=== PATIENT | female | born 1995 | race Caucasian/White ===

== ENCOUNTER 2021-12-18 10:18 | Emergency (ER) | payer OTHER ==
[~2021-12-18] VITALS: Ht 162.6 cm; Wt 63.5 kg
[2021-12-18] MEDS ORDERED: PRENATAL FORMU1 EACH PO (10:32)
[2021-12-18 11:06] LABS: BASOPHIL 0.2 % (0-2); EOSINOPHIL 2.6 % (0-5); HGB 12.5 g/dl (12.5-16.0); MCH 28.4 pg (25.0-31.0); MCHC 32.9 g/dL (32.0-36.0); MCV 86.4 fL (78.0-100.0); MONOCYTE 4.9 % (0-12); MPV 9.5 fL (6.0-9.5); NEUTROPHIL 67.5 % (41-80); NRBC 0; PLT 357 K/uL (150-400); RDW 12.6 % (11.5-14.0)
[2021-12-18 11:18] LABS: BUN/CREAT RATIO (CALC) 15.4 RATIO; CREATININE 0.52 mg/dL (0.51-0.95); POTASSIUM 3.5 mmol/L (3.5-5.1)
[2021-12-18 13:26] LABS: BILIRUBIN NEGATIVE (NEGATIVE); BLOOD 3+ Ery/uL (NEGATIVE); CLARITY CLOUDY (CLEAR); COLOR RED (YELLOW); GLUCOSE (U) NORMAL (NORMAL); LEUKOCYTES TRACE Leu/uL (NEGATIVE); NITRITE NEGATIVE (NEGATIVE); PROTEIN 1+ mg/dL (NEGATIVE); SPECIFIC GRAVITY 1.015 (1.001-1.030); UROBILINOGEN 0.2 mg/dL (0.2-1.0)
[2021-12-18 13:51] LABS: BACTERIA TRACE; URINARY RBC TNTC; URINARY WBC RARE
== END 2021-12-18 15:03 | disposition home or self-care (01) ==
LOC: FER 10:18 → EDBD 10:18 → FER 15:03
PROVIDERS: Emergency Medicine
DX: O99.891 Other specified diseases and conditions complicating pregnancy (principal); R31.9 Hematuria, unspecified; Z91.012 Allergy to eggs; Z88.8 Allergy status to other drugs, medicaments and biological substances; Z3A.19 19 weeks gestation of pregnancy
CPT/HCPCS: 36415; 76770; 76805; 80048; 81001; 85025; 86900; 86901

== ENCOUNTER 2022-03-04 13:25 | Emergency (ER) | payer OTHER ==
[~2022-03-04 13:25] MED LIST: PRENATAL FORMU1 EACH PO
== END 2022-03-04 17:00 | disposition home or self-care (01) ==
LOC: FER 13:25
DX: O99.613 Diseases of the digestive system complicating pregnancy, third trimester (principal); K64.4 Residual hemorrhoidal skin tags; K60.0 Acute anal fissure; K21.9 Gastro-esophageal reflux disease without esophagitis; Z88.8 Allergy status to other drugs, medicaments and biological substances; Z79.899 Other long term (current) drug therapy; Z3A.30 30 weeks gestation of pregnancy
CPT/HCPCS: 99282